=== PATIENT | female | born 1990 | race Caucasian/White ===

== ENCOUNTER 2021-02-03 11:27 | Emergency (ER) | payer OTHER ==
[~2021-02-03] VITALS: Ht 157.5 cm; Wt 75.0 kg
[2021-02-03 16:38] LABS: BASO % 0.4 % (0.0-1.0); EOS % 0.1 % (0.0-3.0); HEMATOCRIT 38.8 % (36.0-47.0); HEMOGLOBIN 12.8 g/dl (12.0-15.5); LYMPH # 1.6 10^3/uL (1.5-5.0); MEAN CORPUSCULAR HEMOGLOBIN 31.3 pg (27.0-33.0); MEAN CORPUSCULAR VOLUME 94.9 fl (80.0-96.0); MONO # 0.5 10^3/uL (0.0-0.8); MONO % 5.4 % (2.0-8.0); NEUTROPHILS # 6.3 10^3/uL (1.5-8.5); NEUTROPHILS % 74.7 % (36.0-66.0); PLATELET COUNT, AUTOMATED 232 10^3/uL (150-450); RED BLOOD COUNT 4.09 10^6/uL (4.00-5.40); WHITE BLOOD COUNT 8.4 10^3/uL (4.0-10.0)
[2021-02-03] MEDS ORDERED: ONDANSETRON 4MG/2ML VIAL IV ONE (16:55)
[2021-02-03] MEDS ORDERED: NS 1,000 ML IV ONE (16:55)
[2021-02-03] MEDS ORDERED: KETOROLAC 30 MG/ML 1ML VIAL IV ONE (16:55)
[2021-02-03 17:01] LABS: ALBUMIN 4.2 GM/DL (3.2-5.2); BILIRUBIN,DIRECT 0.1 MG/DL (0.0-0.2); BILIRUBIN,TOTAL 0.5 MG/DL (0.2-1.0); TOTAL PROTEIN 7.3 GM/DL (6.4-8.2)
[2021-02-03 17:35] VITALS: BP 107/66
--- NOTE | 2021-02-03 18:44 | REP ---
INDICATION: left flank, LLQ pain, r/o stones, ovarian cyst, pyelo. COMPARISON: None. TECHNIQUE: Real-time sonographic evaluation of the kidneys with Doppler FINDINGS: Multiple ultrasonographic images of the right kidney show the right kidney to measure 12.4 x 5.9 x 4.5 cm. The renal cortical echotexture is unremarkable. There are no masses. Increased echoes are seen throughout the medullary portion of the kidney. There is no hydronephrosis. There are no perinephric fluid collections. Multiple ultrasonographic images of the left kidney show the left kidney to measure 12.8 x 6.8 x 6.1 cm. The renal cortical echotexture is unremarkable. There are no masses. Increased echoes are seen throughout the medullary portion of the kidney. There is mild hydronephrosis. There are no perinephric fluid collections. Note is made of cholelithiasis IMPRESSION: 1. Ultrasonographic evidence of medullary sponge kidney. 2. Mild left-sided hydronephrosis etiology uncertain. Stone protocol CT is recommended if clinically relevant. 3. Cholelithiasis <Electronically signed by Eyad Talbert > 02/03/21 [id number]
--- NOTE | 2021-02-03 18:46 | REP ---
INDICATION: left flank, LLQ pain, r/o stones, ovarian cyst, pyelo. COMPARISON: None. TECHNIQUE: Transvesical imaging only. The reason for the lack of transvaginal imaging is unknown to me. FINDINGS: The uterus measures 8.3 x 4.7 x 6.2 cm. The parenchymal echo pattern is within normal limits. The endometrial echo complex measures 8 mm in thickness and is within normal limits. The right ovary measures 3.3 x 1.9 x 2 cm and is within normal limits with an RI of 0.53 The left ovary measures 3.1 x 1.8 x 2 cm and is within normal limits with an RI 0.63. The urinary bladder is empty IMPRESSION: Normal transvesical pelvic ultrasound. <Electronically signed by Eyad Talbert > 02/03/21 [id number]
--- NOTE | 2021-02-03 19:47 | REPVR ---
PROCEDURE INFORMATION: Exam: CT Abdomen And Pelvis Without Contrast Exam date and time: 02/03/2021 7:01 PM Age: 30 years old Clinical indication: Abdominal pain; Flank; Left; Additional info: Left flank pain, now severe, nl US pelvic TECHNIQUE: Imaging protocol: Computed tomography of the abdomen and pelvis without contrast. Axial, coronal and sagittal reformatted images were created and reviewed. Radiation optimization: All CT scans at this facility use at least one of these dose optimization techniques: automated exposure control; mA and/or kV adjustment per patient size (includes targeted exams where dose is matched to clinical indication); or iterative reconstruction. COMPARISON: US PELVIC NON-OB COMPLETE 02/03/2021 5:31 PM FINDINGS: Liver: Unremarkable. Gallbladder and bile ducts: Cholelithiasis. Pancreas: Unremarkable. Spleen: Unremarkable. Adrenal glands: Normal. No mass. Kidneys and ureters: Mild to moderate left-sided hydroureteronephrosis and perinephric/periureteral stranding, secondary to a 5 mm left UVJ calculus (axial image 116 and coronal image 50). Nonobstructing bilateral renal calculi. Stomach and bowel: No bowel wall thickening. No obstruction. No pneumatosis. Appendix: Normal. Intraperitoneal space: No free fluid. No organized fluid collection. No free air. Vasculature: Unremarkable. No aneurysm. Lymph nodes: No pathologically enlarged lymph nodes. Urinary bladder: Unremarkable as visualized. Reproductive: Unremarkable. Bones/joints: No acute osseous abnormality. Soft tissues: Small, fat containing umbilical hernia. IMPRESSION: 1. Mild to moderate left-sided hydroureteronephrosis and perinephric/periureteral stranding, secondary to a 5 mm left UVJ calculus. 2. Additional findings, as above. Electronically signed by: Renard Escobar On 02/03/2021 19:47:12 PM
[2021-02-03] MEDS ORDERED: HYDR-3713 PO (20:15)
[2021-02-03] MEDS ORDERED: ONDA4TAB6 PO (20:15)
[2021-02-03] MEDS ORDERED: FLOM0.4C39 PO (20:15)
[2021-02-03] MEDS ORDERED: NORCO 5/325MG TABLET (BULK FOR ED) PO ONE (20:30)
[2021-02-03] MEDS ORDERED: TAMSULOSIN 0.4 MG CAP PO ONE (20:30)
== END 2021-02-03 20:37 | disposition home or self-care (01) ==
LOC: M ED 11:27
DX: N13.2 Hydronephrosis with renal and ureteral calculous obstruction (principal); K80.20 Calculus of gallbladder without cholecystitis without obstruction
CPT/HCPCS: 74176; 76775; 76856; 80047; 80076; 81001; 83690; 84702; 85025; 96374; 96375; 99284; J1885; J2405

== ENCOUNTER 2023-02-02 08:59 | Emergency (ER) | payer BC, OTHER ==
[~2023-02-02] VITALS: Ht 157.5 cm; Wt 78.4 kg
[~2023-02-02 08:59] MED LIST: FLOM0.4C39 PO; HYDR-3713 PO; ONDA4TAB6 PO
[2023-02-02] MEDS ORDERED: NS 1,000 ML IV ONE (10:05)
[2023-02-02 10:16] LABS: BASO % 0.2 % (0.0-1.0); HEMATOCRIT 36.1 % (36.0-47.0); LYMPH # 0.4 10^3/uL (1.5-5.0); LYMPH % 2.3 % (24.0-44.0); MEAN CORPUSCULAR HEMOGLOBIN 31.1 pg (27.0-33.0); MEAN CORPUSCULAR HGB CONC 33.2 g/dl (32.0-36.5); MEAN CORPUSCULAR VOLUME 93.5 fl (80.0-96.0); MONO # 0.2 10^3/uL (0.0-0.8); MONO % 1.1 % (2.0-8.0); NEUTROPHILS # 17.8 10^3/uL (1.5-8.5); NEUTROPHILS % 95.8 % (36.0-66.0); PLATELET COUNT, AUTOMATED 190 10^3/uL (150-450); RED BLOOD COUNT 3.86 10^6/uL (4.00-5.40); WHITE BLOOD COUNT 18.5 10^3/uL (4.0-10.0)
[2023-02-02] MEDS ORDERED: cefTRIAXone SOD 1 GM in D5W MINI-BAG PLUS 50 ML IV ONE (10:20)
[2023-02-02 10:38] LABS: LIPASE 24 U/L (12-53)
[2023-02-02 10:40] LABS: ALBUMIN 3.8 G/DL (3.2-5.2); ALKALINE PHOSPHATASE 59 U/L (46-116); ALT/SGPT 17 U/L (7.0-40); AST/SGOT 16 U/L (<34); BILIRUBIN,DIRECT 0.3 MG/DL (<0.4); BILIRUBIN,TOTAL 0.9 MG/DL (0.3-1.2); BLOOD UREA NITROGEN 16 MG/DL (9-23); CALCIUM LEVEL 9.1 MG/DL (8.5-10.1); CARBON DIOXIDE LEVEL 26 MMOL/L (20-31); CHLORIDE LEVEL 105 MMOL/L (98-107); CREATININE FOR GFR 0.65 MG/DL (0.55-1.30); GLOMERULAR FILTRATION RATE > 60.0 (>60); GLUCOSE, FASTING 113 MG/DL (60-100); POTASSIUM SERUM 3.9 MMOL/L (3.5-5.1); SODIUM LEVEL 140 MMOL/L (136-145); TOTAL PROTEIN 6.5 G/DL (5.7-8.2)
[2023-02-02 10:52] LABS: RSV AMPLIFICATION NEGATIVE (NEGATIVE)
[2023-02-02] MEDS ORDERED: CIPR500T39 PO (11:42)
[2023-02-02] MEDS ORDERED: FLOM0.4C39 PO (11:42)
[2023-02-02] MEDS ORDERED: HYDR-3713 PO (11:44)
[2023-02-02] MEDS ORDERED: ACETAMINOPHEN 500 MG TAB PO ONE (11:45)
[2023-02-02 12:01] VITALS: BP 116/76; O2SAT 97
[2023-02-02 12:20] VITALS: TEMP 98.8
[2023-02-02] MEDS ORDERED: REGL5TAB2 PO (13:04)
== END 2023-02-02 13:04 | disposition home or self-care (01) ==
LOC: M ED 08:59
DX: N12 Tubulo-interstitial nephritis, not specified as acute or chronic (principal); N13.2 Hydronephrosis with renal and ureteral calculous obstruction; Z87.442 Personal history of urinary calculi; I50.9 Heart failure, unspecified
CPT/HCPCS: 74176; 80048; 80076; 81001; 83605; 83690; 84702; 85025; 87040; 87088; 87186; 87631; 96361; 96365; 99284; J0696